=== PATIENT | male | born 1980 | race American Indian/Alaskan Native ===

== ENCOUNTER 2016-10-13 21:47 | Emergency (ER) | payer OTHER ==
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
[2016-10-14] MEDS ORDERED: FLEXERIL PO ONE (04:44)
[2016-10-14] MEDS ORDERED: MOTRIN PO ONE (04:44)
[2016-10-14 05:15] VITALS: BP 112/66
== END 2016-10-14 05:15 | disposition home or self-care (01) ==
LOC: ED 21:47
DX: M54.2 Cervicalgia (principal); R51 Headache; M54.5 Low back pain; F17.200 Nicotine dependence, unspecified, uncomplicated; F12.90 Cannabis use, unspecified, uncomplicated; V89.2XXA Person injured in unspecified motor-vehicle accident, traffic, initial encounter; Y93.89 Activity, other specified; Y99.9 Unspecified external cause status; Y92.410 Unspecified street and highway as the place of occurrence of the external cause
CPT/HCPCS: 70450; 72125; 72131

== ENCOUNTER 2018-01-02 10:47 | Outpatient (CLI) | payer OTHER ==
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
== END 2018-01-02 10:48 | disposition home or self-care (01) ==
LOC: XRAY 10:47
PROVIDERS: ATTEND Internal Medicine
DX: B20 Human immunodeficiency virus [HIV] disease (principal); I63.9 Cerebral infarction, unspecified; F17.210 Nicotine dependence, cigarettes, uncomplicated

== ENCOUNTER 2018-12-19 16:10 | Emergency (ER) | payer MEDICAID, OTHER ==
--- NOTE | 2018-12-19 16:21 | Emergency Department Report ---
Blank Doc - Documentation Documentation: This is a 38-year-old male that presents with splinter stuck to left 5th finger. This initial assessment/diagnostic orders/clinical plan/treatment(s) is/are subject to change based on patient's health status, clinical progression and re- assessment by fellow clinical providers in the ED. Further treatment and workup at subsequent clinical providers discretion. Patient/guardians urged not to elope from the ED as their condition may be serious if not clinically assessed and managed. Initial orders include: 1- Patient sent to [facility] for further evaluation and treatment 2- xray
[2018-12-19 16:26] VITALS: BP 112/77
--- NOTE | 2018-12-19 16:55 | XRay Report ---
XR hand 3+V RT INDICATION / CLINICAL INFORMATION: right hand pain r/p foreign body to 5th finger. COMPARISON: None available. FINDINGS: BONES/JOINT(S): No acute fracture or subluxation. No significant degenerative changes. SOFT TISSUES: No radiopaque foreign bodies identified. No soft tissue gas. ADDITIONAL FINDINGS: None. Signer Name: Michael Ferreira MD Signed: 12/19/2018 4:51 PM Workstation Name: [id number]
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
== END 2018-12-19 19:15 | disposition home or self-care (01) ==
LOC: ED 16:10
DX: S60.456A Superficial foreign body of right little finger, initial encounter (principal); F17.200 Nicotine dependence, unspecified, uncomplicated; Z79.1 Long term (current) use of non-steroidal anti-inflammatories (NSAID); W45.8XXA Other foreign body or object entering through skin, initial encounter; Y93.89 Activity, other specified; Y92.89 Other specified places as the place of occurrence of the external cause; Y99.8 Other external cause status

== ENCOUNTER 2020-01-24 10:29 | Emergency (ER) | payer MEDICAID ==
[2020-01-24 10:50] VITALS: BP 119/78
--- NOTE | 2020-01-24 13:35 | Emergency Department Report ---
ED ENT HPI - General Chief complaint: Earache Stated complaint: RT EAR PAIN Time Seen by Provider: 01/24/20 13:15 Source: patient Mode of arrival: Ambulatory Limitations: No Limitations - History of Present Illness MD complaint: ear pain -: Gradual Location: R ear Severity: mild, moderate Quality: dull Consistency: constant Improves with: none Worsens with: none Associated Symptoms: denies: cough, gum swelling, sore throat, tinnitus, discharge from ear, rhinorrhea - Related Data Previous Rx's Medication Instructions Recorded Last Taken Type Cyclobenzaprine [Flexeril] 10 mg PO TID PRN #10 tablet 10/14/16 Unknown Rx Ibuprofen [Motrin] 600 mg PO Q8H PRN #25 tablet 10/14/16 Unknown Rx Neomy/Polymyx B/Hc (Otic) Soln 4 drops AD TID #1 bottle 01/24/20 Unknown Rx [Cortisporin (Otic) Soln] Allergies Allergy/AdvReac Type Severity Reaction Status Date / Time No Known Allergies Allergy Verified 10/13/16 22:15 ED Dental HPI - General Chief complaint: Earache Stated complaint: RT EAR PAIN Time Seen by Provider: 01/24/20 13:15 Source: patient Mode of arrival: Ambulatory Limitations: No Limitations - Related Data Previous Rx's Medication Instructions Recorded Last Taken Type Cyclobenzaprine [Flexeril] 10 mg PO TID PRN #10 tablet 10/14/16 Unknown Rx Ibuprofen [Motrin] 600 mg PO Q8H PRN #25 tablet 10/14/16 Unknown Rx Neomy/Polymyx B/Hc (Otic) Soln 4 drops AD TID #1 bottle 01/24/20 Unknown Rx [Cortisporin (Otic) Soln] Allergies Allergy/AdvReac Type Severity Reaction Status Date / Time No Known Allergies Allergy Verified 10/13/16 22:15 ED Review of Systems ROS: Stated complaint: RT EAR PAIN Other details as noted in HPI Comment: All other systems reviewed and negative ED Past Medical Hx - Past Medical History Previous Medical History?: No - Surgical History Past Surgical History?: Yes Additional Surgical History: [facility] 1995 - Social History Smoking Status: Current Every Day Smoker Substance Use Type: Alcohol, Marijuana - Medications Home Medications: Home Medications Medication Instructions Recorded Confirmed Last Taken Type Cyclobenzaprine [Flexeril] 10 mg PO TID PRN #10 tablet 10/14/16 Unknown Rx Ibuprofen [Motrin] 600 mg PO Q8H PRN #25 tablet 10/14/16 Unknown Rx Neomy/Polymyx B/Hc (Otic) Soln 4 drops AD TID #1 bottle 01/24/20 Unknown Rx [Cortisporin (Otic) Soln] ED Physical Exam - General Limitations: No Limitations General appearance: alert, in no apparent distress - Head Head exam: Present: atraumatic, normocephalic - Eye Eye exam: Present: normal appearance, PERRL, EOMI, scleral icterus - ENT ENT exam: Present: normal exam, normal orophraynx, mucous membranes moist, TM's normal bilaterally - Neck Neck exam: Present: normal inspection, full ROM - Respiratory Respiratory exam: Present: normal lung sounds bilaterally. Absent: respiratory distress, wheezes, rales, chest wall tenderness, accessory muscle use - Cardiovascular Cardiovascular Exam: Present: regular rate, normal rhythm. Absent: systolic murmur, diastolic murmur, rubs, gallop - GI/Abdominal GI/Abdominal exam: Present: soft, normal bowel sounds - Rectal Rectal exam: Present: deferred - Extremities Exam Extremities exam: Present: normal inspection - Back Exam Back exam: Present: normal inspection - Neurological Exam Neurological exam: Present: alert, oriented X3 - Psychiatric Psychiatric exam: Present: normal affect, normal mood - Skin Skin exam: Present: warm, dry, intact, normal color. Absent: rash ED Course Vital Signs 01/24/20 10:46 Temperature 98.4 F Pulse Rate 93 H Respiratory 20 Rate Blood Pressure 119/78 O2 Sat by Pulse 99 Oximetry Critical care attestation.: If time is entered above; I have spent that time in minutes in the direct care of this critically ill patient, excluding procedure time. ED Disposition Clinical Impression: Otitis externa Disposition: DC-01 TO HOME OR SELFCARE Is pt being admited?: No Does the pt Need Aspirin: No Condition: Stable Instructions: Otitis Externa (ED) Prescriptions: Neomy/Polymyx B/Hc (Otic) Soln [Cortisporin (Otic) Soln] 4 drops AD TID #1 bottle Referrals: EVA SORIA MD [Primary Care Provider] - 3-5 Days
== END 2020-01-24 14:00 | disposition home or self-care (01) ==
LOC: ED 10:29
DX: H60.8X1 Other otitis externa, right ear (principal); F17.200 Nicotine dependence, unspecified, uncomplicated; F12.10 Cannabis abuse, uncomplicated; Z79.899 Other long term (current) drug therapy
CPT/HCPCS: 99282